=== PATIENT | female | born 1970 | race Caucasian/White ===

== ENCOUNTER → 2016-12-07 | Outpatient (CLI) | payer OTHER ==
[~2016-12-07] MED LIST: AMBIEN 10MG10 MG PO; APPLE CIDER VIN1 TAB PO; ATIVAN 0.50.5 MG/TAB PO; ATIVAN1 MG PO; BACTROBAN22 TP; DIFLUCAN200 MG PO; EFFEXOR100 MG PO; FIORICET 325 MG1 TA1 PO; FLEXERIL 1010 MG/TAB PO; IMITREX100 MG PO; JUNEL 1/20 20 M1 TAB; JUNEL 1/20 20 M1 TAB PO; LOPRESSOR 225 MG/TAB PO; MEGA MULTI1 TAB PO; MELATONIN3 M1 PO; PANTOPRAZOLE40 MG PO; PRISTIQ100 MG PO; PROVIGIL200 MG PO; RITALIN10 MG PO; SINGULAIR10 MG PO; TRIAMCIN; TURMERIC1 POW PO; ZOLPIDEM TART10 MG PO; [UNRECOGNIZED DRUG - OTHER] PO; [UNRECOGNIZED DRUG - OTHER] PO; [UNRECOGNIZED DRUG - OTHER] PO; [UNRECOGNIZED DRUG - OTHER] TP
== END ==
LOC: COL.RAD 15:33
DX: S06.0X9A Concussion with loss of consciousness of unspecified duration, initial encounter (principal); X58.XXXA Exposure to other specified factors, initial encounter

== ENCOUNTER → 2017-01-02 | Outpatient (REF) | LOC: WSOH 15:15 | DX: Z01.89 Encounter for other specified special examinations (principal) | CPT/HCPCS: G0463 ==

== ENCOUNTER → 2017-02-06 | Outpatient (REF) | LOC: WSOH 09:00 | DX: Z01.89 Encounter for other specified special examinations (principal) | CPT/HCPCS: G0463 ==

== ENCOUNTER → 2017-02-20 | Outpatient (REF) | LOC: WSOH 10:30 | DX: Z02.89 Encounter for other administrative examinations (principal) | CPT/HCPCS: G0463 ==

== ENCOUNTER → 2017-03-04 | Outpatient (CLI) | payer OTHER | LOC: MC.RAD 14:00 | DX: Z12.31 Encounter for screening mammogram for malignant neoplasm of breast (principal) ==

== ENCOUNTER → 2017-05-03 | Outpatient (CLI) | payer BC | LOC: COL.RAD 08:15 | DX: R51 Headache (principal); Z87.820 Personal history of traumatic brain injury | CPT/HCPCS: A9585 ==

== ENCOUNTER 2019-08-17 17:18 | Emergency (ER) | payer OTHER ==
[2005-01-11 10:44] VITALS: BP 121/80
[2019-08-17 17:28] VITALS: BP 150/79; TEMP 98.1
[2019-08-17 18:17] LABS: COLLECTION METHOD CLEAN CATCH
[2019-08-17 18:22] LABS: MUCOUS Present /lpf; PH 6 (5-8); SQUAMOUS EPITHELIAL 0-2 /hpf; URINE APPEARANCE Clear; URINE BACTERIA None Seen /hpf; URINE BILIRUBIN Negative (NEGATIVE); URINE BLOOD 1+ (NEGATIVE); URINE COLOR Yellow; URINE GLUCOSE Negative (NEGATIVE); URINE KETONE 1+ (NEGATIVE); URINE LEUKOCYTE ESTERASE Trace (NEGATIVE); URINE NITRATE Negative (NEGATIVE); URINE PROTEIN(semi-quant) Negative (NEGATIVE); URINE RBC 0-2 /hpf; URINE UROBILINOGEN Negative (NEGATIVE)
[2019-08-17 18:32] LABS: BASO % 0.4 % (0.0-2.0); GRAN # 3.4 (1.4-6.5); GRAN % 71.8 % (42.2-75.2); HEMATOCRIT 35.4 % (37.0-47.0); HEMOGLOBIN 12.1 g/dl (12.5-16.0); LYMPH # 0.9 (1.2-3.4); LYMPH % 18.6 % (20.0-51.0); MEAN CELL VOLUME 93 fl (80.0-100.0); MEAN CORPUSCULAR HEMOGLOBIN 32 pg (27.0-31.0); MEAN CORPUSCULAR HGB CONC 34 g/dl (33.0-37.0); MEAN PLATELET VOLUME 10.8 fl (7.4-10.4); MONO # 0.4 (0.1-0.6); PLATELET COUNT 161 K/mm3 (130-400); REDCELL DISTRIBUTION WIDTH-CV 12.6 % (11.5-14.5)
[2019-08-17 18:34] LABS: TRICYCLIC ANTIDEPRESS URINE NEGATIVE
[2019-08-17 18:41] LABS: ACETAMINOPHEN < 10 ug/mL (10-30); ALANINE AMINOTRANSFERASE 25 U/L (9-52); ALBUMIN 4.7 gm/dL (3.5-5.0); ALCOHOL(ethanol),MEDICAL < 10 mg/dL; ALKALINE PHOSPHATASE 68 U/L (50-136); ANION GAP 10 mmol/L (7-16); AST,SGOT 32 U/L (15-37); BILIRUBIN,TOTAL 0.5 mg/dL (0.0-1.0); BLOOD UREA NITROGEN 10 mg/dL (7-17); CALCIUM 9.9 mg/dL (8.4-10.2); CARBON DIOXIDE 26 mmol/L (22-30); CHLORIDE 104 mmol/L (98-107); CREATININE, serum 0.69 (0.52-1.25); GLUCOSE 97 mg/dL (74-106); POTASSIUM 4.1 mmol/L (3.4-5.0); SALICYLATE < 1.0 mg/dL; SODIUM 140 mmol/L (137-145); TOTAL PROTEIN 7.2 gm/dL (6.4-8.2)
[2019-08-17] MEDS ORDERED: EFFEXOR 75M75 MG/TAB PO (19:58)
[2019-08-17] MEDS ORDERED: PRINIVIL10 MG PO (20:01)
[2019-08-17] MEDS ORDERED: LEXAPRO 5MG5 MG (20:02)
[2019-08-17 20:24] VITALS: PULSE 87
== END 2019-08-17 20:24 | disposition home or self-care (01) ==
LOC: COL.ER 17:18
PROVIDERS: Emergency Medicine
DX: F60.0 Paranoid personality disorder (principal); F32.9 Major depressive disorder, single episode, unspecified